=== PATIENT | female | born 1960 | race Caucasian/White ===

== ENCOUNTER → 2016-12-15 | Outpatient (CLI) | payer BC ==
[2016-12-15 17:04] LABS: THYROID STIMULATING HORMONE 0.424 uIu/ml (0.300-4.500)
[2016-12-16 06:50] LABS: ESTIMATED AVERAGE GLUCOSE 151 mg/dl; HA1C FLAG Normal (Normal)
== END | disposition home or self-care (01) ==
LOC: C.LAB1850 15:30
PROVIDERS: ATTEND Internal Medicine Endocrinology, Diabetes & Metabolism
DX: E11.9 Type 2 diabetes mellitus without complications (principal); I25.10 Atherosclerotic heart disease of native coronary artery without angina pectoris; E04.2 Nontoxic multinodular goiter; E78.5 Hyperlipidemia, unspecified; I10 Essential (primary) hypertension; E66.9 Obesity, unspecified; E55.9 Vitamin D deficiency, unspecified

== ENCOUNTER → 2017-07-03 | Outpatient (CLI) | payer BC ==
[2017-07-03 17:08] LABS: ALBUMIN 3.9 gm/dl (3.4-5.0); ALT/SGPT 67 U/L (12-78); AST/SGOT 49 U/L (15-37); BLOOD UREA NITROGEN 11 mg/dl (7-18); CALCIUM 9.2 mg/dl (8.5-10.1); CARBON DIOXIDE 27 mmol/L (21-32); CHOLESTEROL 159 mg/dl (0-200); CREATININE 0.63 mg/dl (0.60-1.20); GLUCOSE 135 mg/dl (70-99); POTASSIUM 3.9 mmol/L (3.5-5.1); SODIUM 139 mmol/L (136-145)
[2017-07-03 17:18] LABS: ALKALINE PHOSPHATASE 90 U/L (45-117); LDL CHOLESTEROL CALCULATED 60 mg/dl; TOTAL PROTEIN 7.7 gm/dl (6.4-8.2)
[2017-07-04 07:11] LABS: HEMOGLOBIN A1C 7.3 % (4.5-5.6)
== END | disposition home or self-care (01) ==
LOC: C.LAB1850 15:03
PROVIDERS: ATTEND Internal Medicine Endocrinology, Diabetes & Metabolism
DX: E11.9 Type 2 diabetes mellitus without complications (principal); E78.5 Hyperlipidemia, unspecified; E04.2 Nontoxic multinodular goiter

== ENCOUNTER → 2017-12-22 | Outpatient (CLI) | payer BC ==
--- NOTE | 2017-12-22 11:34 | DIAGNOSTIC IMAGING REPORT ---
SOFT TISS HEAD/NECK-THYROID CLINICAL HISTORY: 57 years-old Female presenting with MULTIPLE TYROID NODULES. TECHNIQUE: Real-time grayscale and color Doppler ultrasound imaging of the thyroid and base of the neck was performed. COMPARISON: 08/01/2008. FINDINGS: Right lobe: Normal echogenicity and echotexture. The right lobe of the thyroid measures 4.9 x 1.3 x 1.2 cm. No parenchymal hyperemia. Index nodule(s) enumerated below: 1. 0.4 x 0.3 x 0.4 cm upper pole cystic anechoic gxteh-azvu-scxa nodule with smooth margins. No echogenic foci to suggest calcifications. TI-RADS 1: Benign. 2. 0.4 x 0.3 x 0.3 cm interpolar solid hypoechoic csbwu-ptqu-ebpl nodule with ill-defined margins. Peripheral calcifications present. TI-RADS 4: Moderately suspicious. 3. 0.5 x 0.5 x 0.6 cm lower pole solid hypoechoic tmmjcs-wiwo-wqgv nodule with irregular margins. Punctate echogenic foci suggesting microcalcifications. TI-RADS 5: Highly suspicious. Left lobe: Normal echogenicity and echotexture. The left lobe of the thyroid measures 5.7 x 3.3 x 3.9 cm. No parenchymal hyperemia. Index nodule(s) enumerated below: 1. 4.4 x 3.1 x 3.5 cm dominant solid isoechoic lukdn-mucs-ndob nodule with smooth margins. No echogenic foci to suggest calcifications. TI-RADS 3: Mildly suspicious. Isthmus: The isthmus measures 3 mm in thickness. No parenchymal hyperemia. Index nodule(s) enumerated below: 1. 1.0 x 0.7 x 0.7 cm isthmic solid hypoechoic cealo-zrjp-zedy nodule with smooth margins. No echogenic foci to suggest calcifications. TI-RADS 4: Moderately suspicious. Reference: TI-RADS 1: No biopsy. TI-RADS 2: No biopsy. TI-RADS 3: FNA if greater than or equal to 2.5 cm; follow if greater than or equal to 1.5 cm. TI-RADS 4: FNA if greater than or equal to 1.5 cm; follow if greater than or equal to 1 cm. TI-RADS 5: FNA of greater than or equal to 1 cm; follow if greater than or equal to 0.5 cm. Shabbir E, Lilliana FN, Julián PayanK, et al. Thyroid Ultrasound Reporting Lexicon: White Paper of the ACR Thyroid Imaging, Reporting and Data System (TIRADS) Committee. J Am Hi Radiol. 2015;975950-4930. IMPRESSION: 1. Follow-up by ultrasound of the highly suspicious 0.6 cm right thyroid lobe nodule indicated. 2. Ultrasound-guided FNA of the dominant left thyroid lobe nodule indicated. Electronically signed by: Brad Rosenbaum M.D. 12/22/2017 11:33 AM Dictated Date/Time: 12/22/2017 11:09 AM
== END | disposition home or self-care (01) ==
LOC: C.ULTR 10:44
PROVIDERS: ATTEND Internal Medicine Endocrinology, Diabetes & Metabolism
DX: E04.2 Nontoxic multinodular goiter (principal)